=== PATIENT | female | born 1965 | race Caucasian/White ===

== ENCOUNTER 2017-03-21 16:19 | Emergency (ER) | payer SELFPAY ==
[~2017-03-21] VITALS: Ht 165.1 cm; Wt 70.0 kg
[~2017-03-21 16:19] MED LIST: CEPH500C PO; IBUP-1542 PO; SULF-182 PO
[2017-03-21 16:22] VITALS: Ht 165.1 cm; Wt 70.0 kg
[2017-03-21] MEDS ORDERED: IBUP400T22 PO (16:48)
--- NOTE | 2017-03-21 17:34 | ERD ---
ER Documentation Chief Complaint Date/Time DATE: 03/21/17 TIME: 17:30 Chief Complaint Complains of foreignt body to right foot HPI 51-year-old female patient with no significant past medical history presents to the ED complaining of a foreign body in her right foot that occurred 10 years ago. Patient's daughter reports that she stepped on glass 10 years ago and now feels like the piece of glass is coming closer to the surface. Denies any fever , chills, loss of sensation, loss of range of motion. Patient reports that it is painful to ambulate. ROS All systems reviewed and are negative except as per history of present illness. Medications Home Meds Active Scripts Ibuprofen* (Motrin*) 400 Mg Tab, 400 MG PO Q6, #30 TAB Prov:HERSON POON PA-C 03/21/17 Reported Medications Cephalexin* (Cephalexin*) 500 Mg Capsule, 500 MG PO Q6, CAP 08/14/14 Sulfamethoxazole-Trimethoprim (Sulfamethoxazole-Trimethoprim DS) 800-160 Mg Tablet, 1 TAB PO BID, TAB 08/14/14 Ibuprofen* (Ibuprofen*) 600 Mg Tablet, 600 MG PO Q6, TAB 08/14/14 Allergies Allergies: Coded Allergies: No Known Allergy (Unverified , 03/21/17) PMhx/Soc Medical and Surgical Hx: pt denies Medical Hx, pt denies Surgical Hx History of Surgery: No Anesthesia Reaction: No Hx Neurological Disorder: No Hx Respiratory Disorders: No Hx Cardiac Disorders: No Hx Psychiatric Problems: No Hx Miscellaneous Medical Probl: No Hx Alcohol Use: No Hx Substance Use: No Hx Tobacco Use: No Smoking Status: Never smoker Physical Exam Vitals Vital Signs Date Time Temp Pulse Resp B/P Pulse Ox O2 Delivery O2 Flow Rate FiO2 03/21/17 16:22 97.8 88 20 125/65 100 Physical Exam Const: [id number]-elv-hafftkaza, well-nourished. In no acute distress. Head: Atraumatic, normocephalic Eyes: Normal Conjunctiva without injection ENT: Normal external ear, nose and mouth. Neck: Full range of motion. No meningismus. Resp: Clear to auscultation bilaterally. No wheezing, rhonchi, rales, or crackles. No accessory muscle use. No retractions. Cardio: Regular rate and rhythm, no murmurs Skin: No petechiae or rashes Back: No midline tenderness. No CVA tenderness. Ext: No cyanosis, or edema. Cap refill less than 2 seconds. Distal pulses intact bilaterally. Tenderness palpation of the plantar aspect of patient's right midfoot with small foreign body palpated. No erythema, edema. No purulent discharge. No fluctuance or induration. Patient was able to ambulate however was using the lateral aspect of her foot due to the pain in the midfoot region from the foreign body. Neur: Awake and alert. Normal gait and coordination. Muscle strength 5/5. Sensation intact bilaterally. Psych: Normal Mood and Affect Procedures/MDM This is a 51-year-old female patient with no significant past medical history presents to the ED complaining of a glass foreign body noted in the right foot region has been there since 10 years ago. Patient is afebrile and nontoxic- appearing. Patient has normal vital signs. I strictly instructed patient to follow-up with the primary care physician for referral to a general surgeon for further evaluation and treatment and removal of the foreign body. The risks of the procedure being done here in the ED outweigh the benefits of the general surgeon performing the procedure. Low suspicion for deep space infection, scabies, SJS/TEN, erythema multiforme, sepsis, cellulitis, necrotizing fascitis , gangrene, meningococcemia or other emergent conditions. Patient was given crutches to help with ambulation. Patient is neurovascularly intact. Patient' s extremity symptoms have stabilized while they have been evaluated in the department and are appropriate for outpatient follow up. No evidence of fractures, dislocations, compartment syndrome, neurologic injury, vascular injury, open joint, open fracture, tendon laceration, septic arthritis, osteomyelitis, DVT, foreign body, or other emergent conditions. Discharge medications: Ibuprofen Follow up with primary care physician in 1-2 days for a referral to a general surgeon. Instructed patient to return to the ED sooner for any worsening symptoms. Patient's questions were answered. Patient understood and agreed with discharge plan. Patient discharged stable. Departure Diagnosis: Primary Impression: Foreign body Condition: Stable Patient Instructions: Foreign Body, Soft Tissue [Not Removed] [facility] Usted se coffey hecho un examen mdico de control que le indica que no est en shante condicin que requiera tratamiento urgente en el Departamento de Emergencia. Un estudio ms profundo y el tratamiento de teixeira condicin pueden esperar sin ningn riesgo hasta que usted sea atendida/o en el consultorio de teixeira mdico o shante cl evans. Es responsabilidad suya arreglar shante eleanor para el seguimiento del court. MANEJO DE CONDICIONES NO URGENTES EN EL FUTURO 1) Si usted tiene un mdico de atencin primaria: Usted debera llamar a teixeira mdico de atencin primaria antes de venir al departamento de emergencia. Despus de las horas de consultorio, teixeira doctor o teixeira asociado/a est disponible por telfono. El mdico o enfermero de peter en el servicio telefnico puede asesorarle por jayda medio para atender el problema, o court contrario se puede programar shante eleanor. 2) Si usted no tiene un mdico de atencin primaria: Llame al mdico o clnica de referencia que aparece abajo mila las horas de consultorio para hacer shante eleanor para que le vean. CLINICAS: [facility] [phone] [address] [facility] [phone] [address] [facility]. [facility] [phone] [facility] [place] [id number] [phone] [facility] [place] [id number] [phone] [facility]. [phone] [facility] () Usted se coffey hecho un examen mdico de control que le indica que no est en shante condicin que requiera tratamiento urgente en el Departamento de Emergencia. Un estudio ms profundo y el tratamiento de teixeira condicin pueden esperar sin ningn riesgo hasta que usted sea atendida/o en el consultorio de teixeira mdico o shante cl evans. Es responsabilidad suya arreglar shante eleanor para el seguimiento del court. MANEJO DE CONDICIONES NO URGENTES EN EL FUTURO 1) Si usted tiene un mdico de atencin primaria: Usted debera llamar a teixeira mdico de atencin primaria antes de venir al departamento de emergencia. Despus de las horas de consultorio, teixeira doctor o teixeira asociado/a est disponible por telfono. El mdico o enfermero de peter en el servicio telefnico puede asesorarle por jayda medio para atender el problema, o court contrario se puede programar shante eleanor. 2) Si usted no tiene un mdico de atencin primaria: Llame al mdico o condado institucions de referencia que aparece abajo mila las horas de consultorio para hacer shante eleanor para que le vean. SI USTED NO PUEDE PAGAR PARA NORIS UN MEDICO puede ir a: [facility] [address] [place] [address] [facility] [address] [place] [address] [facility] [address] [place] [address] [facility] [address] [place], [place] [id number] [facility] U[facility]ENT [facility]/SPECIALTIES Additional Instructions: Llame al doctor MAANA y olayinka shante ELEANOR PARA DENTRO DE 1-2 MCGILL para un referido noris a un cirujano general para extraccin de cuerpo extrao. Dgale a la secretaria que nosotros le instruimos hacer esta eleanor. Avise o llame si teixeira condicin se empeora antes de la eleanor. Regresa aqui si peor o no mejor. HERSON POON PA-C Mar 21, 2017 17:34
== END 2017-03-21 17:00 | disposition home or self-care (01) ==
LOC: FTE 16:19
DX: S90.851A Superficial foreign body, right foot, initial encounter (principal); W25.XXXA Contact with sharp glass, initial encounter; Y92.9 Unspecified place or not applicable
CPT/HCPCS: 99283